=== PATIENT | female | born 1995 | race Caucasian/White ===

== ENCOUNTER 2022-09-04 14:11 | Outpatient (REF) | payer OTHER, SELFPAY ==
[2022-09-04 16:51] LABS: MANUAL DIFF FLAG NO
[2022-09-04 16:56] LABS: Basophils Percent Auto 0.5 % (0-2); Eosinophils Absolute Auto 0.1 X10*3/uL (0.0-0.4); Eosinophils Percent Auto 1.5 % (0-4); Hemoglobin 13.4 g/dl (12.0-16.0); Imm Gran Abs Auto 0.01 X10*3/uL (0.00-0.03); Imm Gran Pct Auto 0.1 % (0.0-0.4); Lymphocytes Absolute Auto 1.5 X10*3/uL (1.2-4.9); Mean Corpuscular HGB Conc 32.7 g/dl (31.0-35.0); Mean Corpuscular Volume 91.9 fL (80.0-98.0); Mean Platelet Volume 10.5 fL (9.4-12.3); Monocytes Absolute Auto 0.4 X10*3/uL (0.1-1.2); Monocytes Percent Auto 5.6 % (2-11); Neutrophils Absolute Auto 5.5 x10*3/uL (2.0-8.3); Neutrophils Percent Auto 72.3 % (45-73); Platelet Count 365 X10*3/uL (160-400); Red Blood Count 4.46 X10*6/uL (4.20-5.50); Red Cell Distribution Width 13.3 % (11.0-16.0); White Blood Count 7.6 X10*3/uL (4.8-10.8)
[2022-09-04 17:29] LABS: Alanine Aminotransferase 15 U/L (0-31); Albumin Level 4.2 g/dL (3.5-5.0); Alkaline Phosphatase 70 U/L (39-117); Anion Gap 9 (12-20); Aspartate Amino Transferase 12 U/L (5-31); Bilirubin Total 0.6 mg/dL (0.0-1.0); Blood Urea Nitrogen 9 mg/dL (9-16); Calcium 8.9 mg/dL (8.4-10.2); Carbon Dioxide 24 mmol/L (22-29); Chloride 109 mmol/L (96-108); Estimated Glomerular Filt Rate > 60; Free T4 (Free Thyroxine) 0.88 ng/dL (0.71-1.85); Glucose Random 79 mg/dL (60-115); Potassium 4.1 mmol/L (3.3-5.1); Sodium 138 mmol/L (135-145); Thyroid Stimulating Hormone 3.74 uIU/mL (0.32-4.0); Total Protein 8.2 g/dL (6.5-8.0); Vitamin D 25-OH Total 7.6 ng/mL (>30)
[2022-09-04 18:20] LABS: Folate 8.6 ng/mL (> or = 4.0); Vitamin B12 380 pg/mL (200-900)
[2022-09-07 17:14] LABS: Thyroid Peroxidase Antibodies <1 IU/mL (<9)
== END 2022-09-04 14:12 | disposition home or self-care (01) ==
LOC: HO.HMGCLDS 14:11
PROVIDERS: Visit Provider Nurse Practitioner Family
DX: E06.3 Autoimmune thyroiditis (principal); Z76.89 Persons encountering health services in other specified circumstances
CPT/HCPCS: 36415; 80053; 82306; 82607; 82746; 84439; 84443; 85025; 86376

== ENCOUNTER 2025-03-19 12:15 | Outpatient (AMB) | payer MEDICARE, MEDICAID, SELFPAY ==
[2025-03-19 12:27] VITALS: BP 142/88; PULSE 95; O2SAT 97; BMI 44.6
--- NOTE | 2025-03-19 12:27 | A.OFFVIS_ITS ---
Vital Signs 03/19/25 12:27 Height 5 ft 3 in Weight 251 lb 15.814 oz BMI 44.6 BP 142/88 H Blood Pressure Location Lt brachial Position Sitting Pulse 95 Pulse Source Pulse Oximeter Pulse Oximetry (%) 97 Oxygen Delivery Method Room Air Intake Visit Reasons: Hypothyroidism Intake Note: New patient present today for Hypothyroidism. Fashion Marketer Required: No Accompanied by: Mother Allergies dirt Allergy (Mild, Uncoded 03/19/25 12:34) Itchy Eyes dust, dirt, pollen Allergy (Mild, Uncoded 03/19/25 12:34) Itchy Eyes dust, pollen Allergy (Mild, Uncoded 03/19/25 12:34) Itchy Eyes Medication List - Last Reconciled 03/19/25 by Joan Sahni MD acetaminophen (Tylenol) 650 mg PO Q6H PRN cholecalciferol (vitamin D3) 50 mcg PO DAILY levothyroxine 75 mcg PO DAILY HPI Comments Details: 29-year-old female coming in today for initial evaluation of hypothyroidism. Otherwise history significant for developmental delay, legal blindness. Here with mother; Jolynn. Per prior notes she was on levothyroxine back in on levothyroxine 25 mcg daily and then stopped it with being lost to follow up. She had a PCP visit in 2021 which documents this. Most recently seen in urgent Care in December 2024 when levothyroxine 75 mcg daily was started. She was seen in urgent care because of feeling lightheaded, dizzy. She hasnt had follow up with PCP in a while, has appointment for fall later in 2024. Patient currently denies heat or cold intolerance,, hair loss, changes in appearance of eyes or vision changes, tremors, increased diaphoresis. ? Some loose stools since starting levothyroxine. some intermittent palpitations. has tremors. for many years. reports dry hands. recently losing weight with exercise and diet. LMP: last week , regular periods. Does have some excessive hair on chin, likley underlying PCOS with class 3 obesity, following a diet and exercise plan currently. Reports difficulty swallowing cant remember since when, reports mostly problems with fluids and pills. Patient denies voice changes or difficulty breathing. Patient denies any history of childhood neck radiation. Denies having ever used lithium, amiodarone or biotin supplements. Patient denies any family history of thyroid cancer or thyroid disease. On disability , legally blind bilaterally since . Physical exam General: sitting comfortably in no acute distress HEENT: normocephalic/atraumatic Neck: supple, symmetrical, prominent thyroid gland noted Cardiac: normal heart sounds Pulm: normal breath sounds B/L, no added breath sounds Abd: not distended, no tenderness Extremities: no edema, no signs of myxedema Laboratory Tests 09/04/22 14:19 TSH 3.74 Free T4 0.88 Thyroid Peroxidase Ab <1 PFSH Medical History (Updated 03/19/25 @ 12:53 by Joan Sahni MD) Thyromegaly COVID-19 Legally blind Premature baby Surgical History No significant past surgical history Family History Mother Schizoaffective disorder Father Esophageal cancer Hypertension Social History Housing: House Patient Tobacco Use Status: Never used Tobacco Second Hand Smoke Exposure: No service: No Current occupational status: disabled Cognitive needs: No Hearing needs: No Vision needs: Yes Physical Exam Vital Signs: Last Vital Signs Pulse 95 03/19/25 12:27 BP 142/88 H 03/19/25 12:27 Pulse Ox 97 03/19/25 12:27 Oxygen Delivery Method Room Air 03/19/25 12:27 BMI result Body Mass Index 44.6 Assessment & Plan Assessment & Plan (1) Autoimmune thyroiditis: Code(s): E06.3 - Autoimmune thyroiditis Category: Medical Plan: 29-year-old female with a history of hypothyroidism diagnosed sometime in 2018 or 2019 who is on levothyroxine 25 mcg daily for 1 or 2 years and then stopped the medication and was lost to follow up due to personal issues, who was seen at urgent care in December 2024 and found to have low thyroid function levels, I do not have these labs available to me, and was restarted on levothyroxine 75 mcg daily. She has been on this since December 2024. Hi we will repeat labs today and we will also check TPO antibodies. Plan: -continue levothyroxine 75 mcg daily -check TSH and free T4 today -follow up in 5 weeks (2) Thyromegaly: Code(s): E01.0 - Iodine-deficiency related diffuse (endemic) goiter Category: Medical Plan: 29-year-old female with a history of hypothyroidism as mentioned above, with no family history of thyroid cancer, with no personal history of head or neck radiation, with prominent thyroid on exam today. We will do an ultrasound of the thyroid to check if there is any nodules. Plan: -ordered ultrasound of the thyroid -follow up in 5 weeks to discuss results Plan I spent 45 minutes in reviewing the record, seeing the patient and documenting in the medical record. Orders: Orders Thyroid Stimulating Hormone Today E06.3 - Autoimmune thyroiditis Free T4 (Free Thyroxine) Today E06.3 - Autoimmune thyroiditis Thyroid Peroxidase Antibodies Today E06.3 - Autoimmune thyroiditis US thyroid Today E01.0 - Iodine-deficiency related diffuse (endemic) goiter, E06.3 - Autoimmune thyroiditis Patient Instructions: Do blood work today Do ultrasound of the thyroid, someone will call you to schedule this Follow up in 5 weeks to discuss results Continue levothyroxine 75 mcg daily Coding Level of Care Code New Pt Level 4 (39624) Diagnoses Autoimmune thyroiditis E06.3 Thyromegaly E01.0 Time Spent (min) 45
== END 2025-03-19 12:57 | disposition home or self-care (01) ==
LOC: HO.ENCR 12:16
PROVIDERS: PCP Internal Medicine; Visit Provider Student in an Organized Health Care Education/Training Program
DX: E06.3 Autoimmune thyroiditis (principal); E01.0 Iodine-deficiency related diffuse (endemic) goiter
CPT/HCPCS: 99204

== ENCOUNTER 2025-03-19 12:15 | Outpatient (REF) | payer OTHER, SELFPAY ==
[2025-03-19 14:42] LABS: Free T4 (Free Thyroxine) 1.31 ng/dL (0.71-1.85)
[2025-03-20 18:48] LABS: Thyroid Peroxidase Antibodies <1 IU/mL (<9)
== END 2025-03-19 12:16 | disposition home or self-care (01) ==
LOC: HO.LAB 12:15
PROVIDERS: Visit Provider Student in an Organized Health Care Education/Training Program
DX: E06.3 Autoimmune thyroiditis (principal); E01.0 Iodine-deficiency related diffuse (endemic) goiter
CPT/HCPCS: 36415; 84439; 84443; 86376; 99202

== ENCOUNTER 2025-05-02 11:26 | Outpatient (REF) | payer MEDICARE, SELFPAY ==
--- NOTE | ~2025-05-02 | US_ITS ---
EXAMINATION: US THYROID CLINICAL INFORMATION: Autoimmune thyroiditis. COMPARISON: None available. TECHNIQUE: Linear transducer grayscale and color Doppler examination with attention to the region of the thyroid. FINDINGS: SIZE: Measurements of the thyroid lobes and nodules are given in sagittal, anteroposterior and transverse dimensions respectively. Right Thyroid Lobe: 6.6 x 3.0 x 2.6 cm, volume 26.4 mL. Parenchyma: The gland echotexture is heterogeneous. Thyroid vascularity is increased. Left Thyroid Lobe: 6.1 x 2.4 x 2.6 cm, volume 20.1 mL. Parenchyma: The gland echotexture is heterogeneous. Thyroid vascularity is increased. Isthmus: 1.3 cm in maximum AP dimension. Estimated total number of nodules greater than or equal to 1 cm: 1. Breaker Up Machine Operator nodules are described as follows: 1. Location: Right lower pole. Size: 2.3 x 1.7 x 1.9 cm, volume 3.7 mL. Nodule characteristics: Composition: Solid (2). Echogenicity: Isoechoic (1). Shape: Not taller than wide (0). Margins: Smooth (0). Echogenic Foci: None (0). ACR TI-RADS total points: 3 ACR TI-RADS category: 3 2. Location: Isthmus. Size: 0.8 x 0.6 x 0.5 cm, volume 0.13 mL. Nodule characteristics: Composition: Mixed cystic and solid (1). Echogenicity: Hypoechoic (2). Shape: Taller than wide (3). Margins: Smooth (0). Echogenic Foci: Punctate echogenic foci (3). ACR TI-RADS total points: 9 ACR TI-RADS category: 5 3. Location: Left upper pole. Size: 0.3 x 0.3 x 0.5 cm, volume 0.02 mL. Nodule characteristics: Composition: Cystic(0). ACR TI-RADS total points: 0 ACR TI-RADS category: 1 4. Location left mid pole. Size: 0.7 x 0.4 x 0.5 cm, volume 0.08 mL. Nodule characteristics: Composition: Solid (2). Echogenicity: Hyperechoic (1). Shape: Not taller than wide (0). Margins: Smooth (0). Echogenic Foci: None (0). ACR TI-RADS total points: 3 ACR TI-RADS category: 3 NODES: No lymphadenopathy is seen in the tissue surrounding the thyroid gland. US/US thyroid IMPRESSION: 1. There is a 2.3 cm TR category 3 nodule in the right lower pole, for which follow-up is recommended as per the level. 2. There is a 0.8 cm TR category 5 nodule in the isthmus, for which follow-up is recommended as per the lobe. 3. There is a 0.7 cm TR category 3 nodule in the left midpole, for which no follow-up is recommended. 4. Enlarged, heterogeneous, and hypervascular thyroid gland consistent with thyroiditis. ACR TI-RADS RECOMMENDATION REFERENCE: Ultrasound-guided fine-needle aspiration, followup ultrasound, no further follow up. * TR1 (0 point) and TR2 (2 points): No FNA or follow up. * TR3 (3 points): FNA if more than or equal to 2.5 cm in maximum dimension, followup ultrasound in 1, 3 and 5 years if 1.5 to 2.4 cm in maximum dimension. * TR4 (4-6 points): FNA if more than or equal to 1.5 cm in maximum dimension, followup ultrasound in 1, 2, 3 and 5 years if 1 to 1.4 cm in maximum dimension. * TR5 (more than or equal to 7 points): FNA if more than or equal to 1 cm in maximum dimension, followup ultrasound every year for 5 years if 0.5 to 0.9 cm in maximum dimension. * TR3, TR4 or TR5 nodules that are below the size threshold for followup receive no follow up. Electronically signed by: Anthony Palacio MD 05/02/2025 12:27 PM EDT
== END 2025-05-02 11:27 | disposition home or self-care (01) ==
LOC: HO.HMGCX 11:26
PROVIDERS: Visit Provider Student in an Organized Health Care Education/Training Program
DX: E06.3 Autoimmune thyroiditis (principal); E01.0 Iodine-deficiency related diffuse (endemic) goiter
CPT/HCPCS: 76536

== ENCOUNTER → 2025-05-02 11:31 | Outpatient (BNV) | payer MEDICARE, SELFPAY | PROVIDERS: Visit Provider Radiology Diagnostic Radiology | DX: E04.2 Nontoxic multinodular goiter (principal) | CPT/HCPCS: 76536 ==

== ENCOUNTER 2025-05-07 11:09 | Outpatient (AMB) | payer OTHER, SELFPAY ==
[2025-05-07 11:12] VITALS: BP 138/82; PULSE 86; O2SAT 100; BMI 43.7
--- NOTE | 2025-05-07 11:12 | MHC.OFFVIS ---
Vital Signs 05/07/25 11:12 Height 5 ft 3 in Weight 246 lb 7.629 oz BMI 43.7 BP 138/82 Blood Pressure Location Lt brachial Position Sitting Pulse 86 Pulse Source Pulse Oximeter Pulse Oximetry (%) 100 Oxygen Delivery Method Room Air Intake Visit Reasons: Autoimmune thyroiditis Intake Note: Patient present today for Autoimmune thyroiditis office visit. Broadcast Supervisor Required: No Accompanied by: Mother Allergies dirt Allergy (Mild, Uncoded 05/07/25 11:15) Itchy Eyes dust, dirt, pollen Allergy (Mild, Uncoded 05/07/25 11:15) Itchy Eyes dust, pollen Allergy (Mild, Uncoded 05/07/25 11:15) Itchy Eyes Medication List - Last Reconciled 05/07/25 by Joan Sahni MD acetaminophen (Tylenol) 650 mg PO Q6H PRN cholecalciferol (vitamin D3) 50 mcg PO DAILY levothyroxine 75 mcg PO DAILY HPI Comments Details: 29-year-old female coming in today for follow up of hypothyroidism. Otherwise history significant for developmental delay, legal blindness. Here with mother; Jolynn. HPI Per prior notes she was on levothyroxine back in on levothyroxine 25 mcg daily and then stopped it with being lost to follow up. She had a PCP visit in 2021 which documents this. Most recently seen in urgent Care in December 2024 when levothyroxine 75 mcg daily was started. She was seen in urgent care because of feeling lightheaded, dizzy. She hasnt had follow up with PCP in a while, has appointment for fall later in 2024. Patient currently denies heat or cold intolerance,, hair loss, changes in appearance of eyes or vision changes, tremors, increased diaphoresis. ? Some loose stools since starting levothyroxine. some intermittent palpitations. has tremors. for many years. reports dry hands. recently losing weight with exercise and diet. LMP: last week , regular periods. Does have some excessive hair on chin, likley underlying PCOS with class 3 obesity, following a diet and exercise plan currently. Reports difficulty swallowing cant remember since when, reports mostly problems with fluids and pills. Patient denies voice changes or difficulty breathing. Patient denies any history of childhood neck radiation. Denies having ever used lithium, amiodarone or biotin supplements. Patient denies any family history of thyroid cancer or thyroid disease. On disability , legally blind bilaterally since . Interval history Continues on levothyroxine 75 mcg daily Labs done 03/19/2025 showed normal TSH of 1, normal free T4 of 1.31 Ultrasound thyroid 05/02/2025: Shows a right lower pole 2.3 cm solid isoechoic TR 3 nodule, isthmus subcentimeter 0.8 cm mixed cystic solid hypoechoic nodule taller than wide with punctate echogenic foci this is TR 4 eyes category and needs to be followed up as well. Other left superior pole 0.5 cm cystic nodule, another left midpole 0.7 cm solid hyperechoic TR 3 nodule. None of these meet criteria for FNA. She has a very heterogenous gland some of these could be pseudonodules potentially, We will need repeat ultrasound to be done in 1 year. Physical exam General: sitting comfortably in no acute distress HEENT: normocephalic/atraumatic Neck: supple, symmetrical, prominent thyroid gland noted Cardiac: normal heart sounds Pulm: normal breath sounds B/L, no added breath sounds Abd: not distended, no tenderness Extremities: no edema, no signs of myxedema Laboratory Tests 09/04/22 14:19 TSH 3.74 Free T4 0.88 Thyroid Peroxidase Ab <1 Laboratory Tests 03/19/25 13:17 TSH 1.00 Free T4 1.31 US THYROID 05/02/25 CLINICAL INFORMATION: Autoimmune thyroiditis. COMPARISON: None available. TECHNIQUE: Linear transducer grayscale and color Doppler examination with attention to the region of the thyroid. FINDINGS: SIZE: Measurements of the thyroid lobes and nodules are given in sagittal, anteroposterior and transverse dimensions respectively. Right Thyroid Lobe: 6.6 x 3.0 x 2.6 cm, volume 26.4 mL. Parenchyma: The gland echotexture is heterogeneous. Thyroid vascularity is increased. Left Thyroid Lobe: 6.1 x 2.4 x 2.6 cm, volume 20.1 mL. Parenchyma: The gland echotexture is heterogeneous. Thyroid vascularity is increased. Isthmus: 1.3 cm in maximum AP dimension. Estimated total number of nodules greater than or equal to 1 cm: 1. Steam Pan Sponger nodules are described as follows: 1. Location: Right lower pole. Size: 2.3 x 1.7 x 1.9 cm, volume 3.7 mL. Nodule characteristics: Composition: Solid (2). Echogenicity: Isoechoic (1). Shape: Not taller than wide (0). Margins: Smooth (0). Echogenic Foci: None (0). ACR TI-RADS total points: 3 ACR TI-RADS category: 3 2. Location: Isthmus. Size: 0.8 x 0.6 x 0.5 cm, volume 0.13 mL. Nodule characteristics: Composition: Mixed cystic and solid (1). Echogenicity: Hypoechoic (2). Shape: Taller than wide (3). Margins: Smooth (0). Echogenic Foci: Punctate echogenic foci (3). ACR TI-RADS total points: 9 ACR TI-RADS category: 5 3. Location: Left upper pole. Size: 0.3 x 0.3 x 0.5 cm, volume 0.02 mL. Nodule characteristics: Composition: Cystic(0). ACR TI-RADS total points: 0 ACR TI-RADS category: 1 4. Location left mid pole. Size: 0.7 x 0.4 x 0.5 cm, volume 0.08 mL. Nodule characteristics: Composition: Solid (2). Echogenicity: Hyperechoic (1). Shape: Not taller than wide (0). Margins: Smooth (0). Echogenic Foci: None (0). ACR TI-RADS total points: 3 ACR TI-RADS category: 3 NODES: No lymphadenopathy is seen in the tissue surrounding the thyroid gland. US/US thyroid IMPRESSION: 1. There is a 2.3 cm TR category 3 nodule in the right lower pole, for which follow-up is recommended as per the level. 2. There is a 0.8 cm TR category 5 nodule in the isthmus, for which follow-up is recommended as per the lobe. 3. There is a 0.7 cm TR category 3 nodule in the left midpole, for which no follow-up is recommended. 4. Enlarged, heterogeneous, and hypervascular thyroid gland consistent with thyroiditis. [facility] Medical History (Updated 05/07/25 @ 11:38 by Joan Sahni MD) Multinodular goiter (nontoxic) Thyromegaly COVID-19 Legally blind Premature baby Surgical History No significant past surgical history Family History Mother Schizoaffective disorder Father Esophageal cancer Hypertension Social History Housing: House Patient Tobacco Use Status: Never used Tobacco Second Hand Smoke Exposure: No service: No Current occupational status: disabled Cognitive needs: No Hearing needs: No Vision needs: Yes Physical Exam Vital Signs: Last Vital Signs Pulse 86 05/07/25 11:12 BP 138/82 05/07/25 11:12 Pulse Ox 100 05/07/25 11:12 Oxygen Delivery Method Room Air 05/07/25 11:12 BMI result Body Mass Index 43.7 Assessment & Plan Assessment & Plan (1) Autoimmune thyroiditis: Code(s): E06.3 - Autoimmune thyroiditis Category: Medical Plan: 29-year-old female with a history of hypothyroidism diagnosed sometime in 2018 or 2018 who is on levothyroxine 25 mcg daily for 1 or 2 years and then stopped the medication and was lost to follow up due to personal issues, who was seen at urgent care in December 2024 and found to have low thyroid function levels, I do not have these labs available to me, and was restarted on levothyroxine 75 mcg daily. She has been on this since December 2024. Most recent blood work from February 2025 shows normal TSH and free T4. Plan: -continue levothyroxine 75 mcg daily -follow up in 1 year with repeat labs prior to follow up (2) Multinodular goiter (nontoxic): Code(s): E04.2 - Nontoxic multinodular goiter Category: Medical Plan: 29-year-old female with no family history of thyroid cancer with no personal history of head or neck radiation who was found to have thyroid nodules on ultrasound in April 2025. Ultrasound thyroid 05/02/2025: Shows a right lower pole 2.3 cm solid isoechoic TR 3 nodule, isthmus subcentimeter 0.8 cm mixed cystic solid hypoechoic nodule taller than wide with punctate echogenic foci this is TR 4 eyes category and needs to be followed up as well. Other left superior pole 0.5 cm cystic nodule, another left midpole 0.7 cm solid hyperechoic TR 3 nodule. None of these meet criteria for FNA. She has a very heterogenous gland some of these could be pseudonodules potentially, We will need repeat ultrasound to be done in 1 year. Plan: -ordered ultrasound thyroid to be done prior to follow up in April 2026 Plan I spent 30 minutes in reviewing the record, seeing the patient and documenting in the medical record. Orders: Orders US thyroid 04/08/26 E04.2 - Nontoxic multinodular goiter Thyroid Stimulating Hormone 04/08/26 E04.2 - Nontoxic multinodular goiter, E06.3 - Autoimmune thyroiditis Free T4 (Free Thyroxine) 04/08/26 E04.2 - Nontoxic multinodular goiter, E06.3 - Autoimmune thyroiditis Medications: Refilled levothyroxine 75 mcg PO DAILY 90 tabs 4RF Patient Instructions: Do ultrasound of the thyroid in March 2026 , someone we will call you to schedule this please make sure this is done a few weeks prior to your next follow up with me in April 2026 Continue levothyroxine 75 mcg daily Do blood work prior to your next follow up in 1 year, orders-placed Coding Level of Care Code Est Pt Level 4 (29636) Diagnoses Autoimmune thyroiditis E06.3 Multinodular goiter (nontoxic) E04.2 Time Spent (min) 30
== END 2025-05-07 11:43 | disposition home or self-care (01) ==
LOC: HO.ENCR 11:10
PROVIDERS: PCP Internal Medicine; Visit Provider Student in an Organized Health Care Education/Training Program
DX: E06.3 Autoimmune thyroiditis (principal); E04.2 Nontoxic multinodular goiter
CPT/HCPCS: 99214

== ENCOUNTER → 2025-05-07 11:09 | Outpatient (BNVA) | payer OTHER, SELFPAY | PROVIDERS: PCP Internal Medicine; Visit Provider Student in an Organized Health Care Education/Training Program | DX: E06.3 Autoimmune thyroiditis (principal); E04.2 Nontoxic multinodular goiter | CPT/HCPCS: 99212 ==

== ENCOUNTER 2025-09-17 13:21 | Outpatient (AMB) | payer OTHER, SELFPAY ==
--- NOTE | 2025-09-17 13:40 | MHC.PC.OV ---
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 Advocate Required: No Accompanied by: Mother Allergies dirt Allergy (Mild, Uncoded 09/17/25 13:52) Itchy Eyes dust, dirt, pollen Allergy (Mild, Uncoded 09/17/25 13:52) Itchy Eyes dust, pollen Allergy (Mild, Uncoded 09/17/25 13:52) Itchy Eyes Medication List - Last Reconciled 09/17/25 by Renita Rose PA-C acetaminophen (Tylenol) 650 mg PO Q6H PRN cholecalciferol (vitamin D3) 100 mcg PO DAILY levothyroxine 75 mcg PO DAILY melatonin 10 mg PO BEDTIME PRN Tobacco use date assessed: 08/18/22 Dental Screening Dental Screen Date: 09/17/25 Did you have a dental visit in the last 12 months?: Yes Did you have a dental problem in the last 6 months where you did not have access to dental care?: No Was dental information given to patient?: Patient has dentist HPI Request 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 In review of the notes, patient was seen by endo 04/2025 continued on Levothyroxine with planned for yearly US. Presenting for a general medical examination and medication management. The last visit was in 2021, and she has received care at an urgent care since then. For her acid reflux, she was instructed by Dr. Sahni to stop her acid medication due to concerns it interferes with her thyroid medication, and she now uses Tums or Rolaids. Her symptoms of dizziness and headaches, which were attributed to her thyroid condition, have improved since being on levothyroxine. She has an upcoming appointment with a mail courier for Raynaud's phenomenon. She reports a history of eczema, which flares up more in the winter. [facility] Medical History Multinodular goiter (nontoxic) Thyromegaly COVID-19 Legally blind Premature baby Surgical History No significant past surgical history Family History Mother Schizoaffective disorder Father Esophageal cancer Hypertension Social History Housing: House Patient Tobacco Use Status: Never used Tobacco e-Cigarette/Vaping Use: Never Used Second Hand Smoke Exposure: No service: No Current occupational status: disabled Cognitive needs: No Hearing needs: No Vision needs: Yes Female Reproductive History Menstrual Duration of menses: 6-7 days control method: none Questionnaire PHQ-9 Over the last 2 weeks, how often have you been bothered by any of the following problems? 1. Little interest or pleasure in doing things: not at all 2. Feeling down, depressed, or hopeless: not at all 3. Trouble falling or staying asleep, or sleeping too much: not at all 4. Feeling tired or having little energy: not at all 5. Poor appetite or overeating: not at all 6. Feeling bad about yourself - or that you are a failure or have let yourself or your family down: not at all 7. Trouble concentrating on things, such as reading the newspaper or watching television: not at all 8. Moving or speaking so slowly that other people could have noticed. Or the opposite - being so fidgety or restless that you have been moving around a lot more than usual: not at all 9. Thoughts that you would be better off or of hurting yourself in some way: not at all Total score: 0 Depression Screening Interpretation: Negative Depression Screening Done: Yes Source: Developed by Drs. Eduin Logan, Taniya Fu, Chance Rudd and colleagues, with an educational namrata from [employer]. Thrive Questionnaire Date Thrive assessed: 09/10/25 I am a: Parent/Caregiver What is your living situation today?: I have a steady place to live Within the past 12 months, did the food you bought not last and you didn't have the money to get more?: Never true Within the past 12 months, did you worry whether your food would run out before you got money to buy more?: Never true Do you have trouble paying for medicines?: No Do you have trouble getting transportation to medical appointments?: No Do you have trouble paying your heating and electricity bill?: No Do you have trouble taking care of your child, family member or friend?: I choose not to answer this question Do you have trouble with day-to-day activities such as bathing, preparing meals, shopping, managing finances, etc.?: Yes Are you currently unemployed and looking for a job?: I choose not to answer this question Are you interested in more education?: No Please select the resources that you would like help with: None Currently or been in a relationship where the following occur: No concerns reported THRIVE Score: 0 AUDIT C Alcohol Use Questionnaire (AUDIT-C) 1. How often do you have a drink containing alcohol?: Never 3. How often do you have six or more drinks on one occasion?: Never Total Score: 0 CHIP-7 AMB Questionnaire CHIP-7 Date CHIP - 7 assessed: 09/17/25 Feeling nervous, anxious, or on edge: 0 = Not at all Not being able to stop or control worryin = Not at all Worrying too much about different things: 0 = Not at all Trouble relaxin = Not at all Being so restless that it is hard to sit still: 0 = Not at all Becoming easily annoyed or irritable: 0 = Not at all Feeling afraid as if something awful might happen: 0 = Not at all Total CHIP-7 score (0-4 normal; 5-9 mild; 10-14 moderate; 15-21 severe): 0 Source: Developed by Drs. Eduin Logan, Taniya Fu, Chance Rudd and colleagues, with an educational namrata from [employer]. Review of Systems Const Denies body aches, Denies chills, Denies fever(s), Reports headache(s) and Denies poor appetite Eyes Reports no additional complaints ENT Denies dizziness and Reports headache(s) Card Denies chest pain, Denies syncope, Denies edema, Denies lightheadedness and Denies dyspnea Resp Denies cough and Denies dyspnea GI Denies abdominal pain, Denies constipation, Reports dyspepsia, Reports heartburn, Denies diarrhea, Denies nausea and Denies vomiting Reports no additional complaints Musc Reports no additional complaints and Denies abnormal gait Skin/Breast Reports system reviewed and no additional complaints, except as documented Neuro Denies abnormal gait, Denies dizziness, Denies syncope and Reports headache(s) Psych Reports no additional complaints Physical exam (Primary Care) Vital Signs: Last Vital Signs Temp 97.8 F 09/17/25 13:42 Pulse 81 09/17/25 13:42 Resp 18 09/17/25 13:42 BP 122/84 09/17/25 13:42 Pulse Ox 98 09/17/25 13:42 Oxygen Delivery Method Room Air 09/17/25 13:42 BMI result Body Mass Index 43.7 Tobacco/Smoking Status: Tobacco use Status Tobacco use date assessed 08/18/22 09/17/25 13:48 Patient Tobacco Use Status Never used Tobacco 09/17/25 13:48 e-Cigarette/Vaping Use Never Used 09/17/25 13:48 PHQ-9: PHQ-9 Score PHQ-9: Total score 0 09/17/25 14:17 Depression Screening Interpretation: Negative Thrive Assessment: Date of Thrive Assessment Date Thrive assessed 09/10/25 09/17/25 13:48 Currently or been in a relationship where the following occur: No concerns reported Const General: cooperative, healthy appearing, comfortable and no acute distress Orientation/consciousness: patient oriented x3 HENMT Head: Yes normocephalic Ears: hearing grossly normal bilaterally General nose exam: Normal external nose present Eyes General: appearance normal, both eyes and all related structures Conjunctivae: conjunctivae normal Neck Neck: Yes full ROM and Yes no lymphadenopathy Resp Effort & Inspection: normal respiratory effort Auscultation: clear to auscultation bilaterally, no crackles, no rales, no rhonchi and no wheezes Cardio Rate: regular rate Rhythm: regular rhythm Skin General skin exam: no rashes or lesions noted Neuro General: patient oriented x3 Gait exam (Neuro): Normal gait present Extrem General: Yes normal to inspection, Yes full ROM and No edema Psych Affect: normal affect Attitude: cooperative Insight: Good insight present (Psych) Judgement: Good judgement present (Psych) Immunizations Boostrix Tdap 2.5 Lf unit-8 mcg-5 Lf/0.5 mL intramuscular syringe Performing Provider: Renita Rose PA-C Performing Location: [facility] [place] [facility] Administered by: Viv Palencia LPN on 09/17/25 14:17 Dose Route Admin Location Dispensed Lot Number Expiration Date NDC Mold Sprayer 0.5 mL IM Left Deltoid 0.5 mL [id number] 03/08/28 71504-254-95 [place] Total Dispensed Waste 0.5 mL 0 % VIS Given Date VIS Provided VIS Publication Date 09/17/25 Single Vaccine 21 Eligibility Eligibility Date Funding Source Not [facility] Eligible 09/17/25 Private Coding Level of Care Code New Pt Level 4 (09353) Diagnoses Encounter to establish care Z76.89 Autoimmune thyroiditis E06.3 Multinodular goiter (nontoxic) E04.2 Morbid obesity with BMI of 40.0-44.9, adult E66.01; Z68.41 GERD (gastroesophageal reflux disease) K21.9 Low vitamin D level R79.89 Raynaud disease I73.00 Eczema L30.9 Assessment & Plan Assessment & Plan (1) Encounter to establish care: Code(s): Z76.89 - Persons encountering health services in other specified circumstances Category: Medical Plan: Plan for updated blood work and three-month follow up for annual exam. (2) Autoimmune thyroiditis: Code(s): E06.3 - Autoimmune thyroiditis Category: Medical Plan: Continue to follow with Dr. Sahni through [facility] endo. (3) Multinodular goiter (nontoxic): Code(s): E04.2 - Nontoxic multinodular goiter Category: Medical Plan: See above (4) Morbid obesity with BMI of 40.0-44.9, adult: Code(s): E66.01 - Morbid (severe) obesity due to excess calories; Z68.41 - Body mass index [BMI] 40.0-44.9, adult Category: Medical Plan: Healthy diet and regular exercise is encouraged. (5) GERD (gastroesophageal reflux disease): Code(s): K21.9 - Gastro-esophageal reflux disease without esophagitis Category: Medical Plan: Avoid trigger foods such as citrus, tomato products, soda, caffeine, spicy foods and other foods that may be irritating to your stomach. Avoid laying flat 3-4 hours after eating and elevate the head of the bed 30 degrees to prevent acid from moving into the esophagus. PLan to trial Famotidine. (6) Low vitamin D level: Code(s): R79.89 - Other specified abnormal findings of blood chemistry Category: Medical Plan: Prescription was sent to pharmacy today and ordered for updated blood work. (7) Raynaud disease: Code(s): I73.00 - Raynaud's syndrome without gangrene Category: Medical Plan: She has upcoming appointment with [place] [facility] (8) Eczema: Code(s): L30.9 - Dermatitis, unspecified Category: Medical Plan: To manage eczema flare-ups on her hands, which are worse in the winter, a topical steroid cream will be prescribed. The patient is instructed to use the steroid cream for severe areas, for no more than two weeks at a time, and to continue using Aquaphor for general moisturization. Plan This note was constructed using voice recognition software. While every effort has been made to ensure accuracy and an employee sponsor or advocate and, still areas may have been included sometimes these areas may affect the content or meeting of the given symptoms. Total time spent caring for the patient today was 30 minutes. This includes time spent before the visit reviewing the chart, time spent during the visit, and time spent after the visit and documentation. Patient was informed and verbally consented to the use of an ambient scribe for clinic note documentation during this visit. Orders: Orders Vitamin D 25-OH Total Today Z13.21 - Encounter for screening for nutritional disorder Vitamin B12 and Folate Today Z13.21 - Encounter for screening for nutritional disorder Lipid Panel Today Z13.220 - Encounter for screening for lipoid disorders Comprehensive Met. Panel Today E66.01 - Morbid (severe) obesity due to excess calories, Z00.00 - Encounter for general adult medical examination without abnormal findings, Z68.41 - Body mass index [BMI] 40.0-44.9, adult UA CC w/rflx Micro + Cult Today Z13.9 - Encounter for screening, unspecified Complete Blood Count Auto Diff Today E66.01 - Morbid (severe) obesity due to excess calories, Z13.0 - Encounter for screening for diseases of the blood and blood-forming organs and certain disorders involving the immune mechanism, Z68.41 - Body mass index [BMI] 40.0-44.9, adult TDaP Immunization Today Z23 - Encounter for immunization Medications: New multivitamin 1 tab PO DAILY 90 tabs 0RF triamcinolone acetonide 0.5% 1 appl topical DAILY 15 grams 0RF famotidine 20 mg PO BEDTIME 90 tabs 0RF cholecalciferol (vitamin D3) 100 mcg (2 x 50 mcg (2,000 unit)) PO DAILY 180 caps 0RF melatonin 10 mg PO BEDTIME PRN 90 caps 0RF sleep
[2025-09-17 13:42] VITALS: BP 122/84; PULSE 81; RESP 18; TEMP 36.6; O2SAT 98; BMI 43.7
== END 2025-09-17 14:25 | disposition home or self-care (01) ==
LOC: HO.HMCH 13:22
PROVIDERS: PCP Internal Medicine
DX: Z76.89 Persons encountering health services in other specified circumstances (principal); E06.3 Autoimmune thyroiditis; E04.2 Nontoxic multinodular goiter; E66.01 Morbid (severe) obesity due to excess calories; Z68.41 Body mass index [BMI] 40.0-44.9, adult; K21.9 Gastro-esophageal reflux disease without esophagitis; R79.89 Other specified abnormal findings of blood chemistry; I73.00 Raynaud's syndrome without gangrene; L30.9 Dermatitis, unspecified; Z23 Encounter for immunization

== ENCOUNTER → 2025-09-17 13:21 | Outpatient (BNVA) | payer OTHER, SELFPAY | PROVIDERS: PCP Internal Medicine | DX: Z76.89 Persons encountering health services in other specified circumstances (principal); E06.3 Autoimmune thyroiditis; E04.2 Nontoxic multinodular goiter; E66.01 Morbid (severe) obesity due to excess calories; Z68.41 Body mass index [BMI] 40.0-44.9, adult; R79.89 Other specified abnormal findings of blood chemistry; K21.9 Gastro-esophageal reflux disease without esophagitis; I73.00 Raynaud's syndrome without gangrene; L30.9 Dermatitis, unspecified; Z13.31 Encounter for screening for depression; Z13.39 Encounter for screening examination for other mental health and behavioral disorders; Z23 Encounter for immunization | CPT/HCPCS: 90471; 90715; 96127; 99202 ==